=== PATIENT | female | born 1950 | race Caucasian/White ===

== ENCOUNTER → 2017-09-01 | Outpatient (CLI) | payer MEDICARE ==
[~2017-09-01] MED LIST: CALCAVITDA PO; ESTRTP VAG; FISH1000 PO; GLUC500 PO; HYDACE5325 PO; LORA1 PO; Norco 5-325 Ta1 EACH PO; PARO10 PO; PHENA200 PO; PREG75 PO; PROBIOTIC1 EAC1 PO; SERT100 PO; SERT25 PO; SULTRIDS PO
[2017-09-01 12:56] LABS: Source, Urine Clean Catch
[2017-09-01 15:28] LABS: Bilirubin, Urine Neg (Neg); Blood, Urine 1+ (Neg); Glucose Qualitative, Urine Neg (Neg); Ketones, Urine Neg (Neg); Leukocyte Esterase, Urine 3+ (Neg); Nitrite, Urine Neg (Neg); Protein, Urine Neg (Neg); Specific Gravity, Urine 1.025 (1.003-1.022); Urobilinogen, Urine NORM (Normal)
[2017-09-01 15:54] LABS: Appearance, Urine Cloudy (Clear); Color, Urine Yellow (P-Yellow)
[2017-09-01 15:56] LABS: Bacteria Mod /hpf; Red Blood Cells, Urine 0-2 /hpf (0-2); Squamous Epithelial Cells Few /hpf (Few)
== END | disposition home or self-care (01) ==
LOC: LAB 12:54
PROVIDERS: Internal Medicine
DX: N30.10 Interstitial cystitis (chronic) without hematuria (principal)
CPT/HCPCS: 81001; 87077; 87086; 87186

== ENCOUNTER → 2017-09-30 | Outpatient (CLI) | payer MEDICARE ==
[2017-09-30 18:37] LABS: Source, Urine Catheter
[2017-09-30 18:48] LABS: Appearance, Urine Clear (Clear); Bilirubin, Urine Neg (Neg); Blood, Urine Neg (Neg); Color, Urine Yellow (P-Yellow); Glucose Qualitative, Urine Neg (Neg); Ketones, Urine Neg (Neg); Leukocyte Esterase, Urine Neg (Neg); Nitrite, Urine Neg (Neg); Protein, Urine Neg (Neg); Specific Gravity, Urine 1.005 (1.003-1.022); Urobilinogen, Urine NORM (Normal)
== END | disposition home or self-care (01) ==
LOC: LAB 16:35
PROVIDERS: Nurse Practitioner Women's Health
DX: M54.5 Low back pain (principal); R30.0 Dysuria
CPT/HCPCS: 81003

== ENCOUNTER → 2018-10-14 | Outpatient (CLI) | payer MEDICARE ==
[2018-10-16 15:07] LABS: HPV 16 Negative (Negative); HPV 18 Negative (Negative); HPV OTHER HR TYPES Negative (Negative)
== END | disposition home or self-care (01) ==
LOC: LAB SHORT 19:42 → LAB 19:42
PROVIDERS: Nurse Practitioner Women's Health
DX: Z12.4 Encounter for screening for malignant neoplasm of cervix (principal)
CPT/HCPCS: 87624; G0123

== ENCOUNTER 2019-03-29 11:18 | Day surgery (SDC) | payer MEDICARE ==
[~2019-03-29] VITALS: Ht 154.9 cm; Wt 66.2 kg
[~2019-03-29 11:18] MED LIST changes: +BUSP5 PO; +CITRATE OF MAG296 ML PO; +CYCL0.05OP BOTHEYES; +Cipro500 MG PO; +Estrace Vagin42.5 GM VAG; +Flagyl500 MG PO; +Glucosamine H1500 MG PO; +HYOS.125 PO; +LORA.5 PO; +OMEPRAZOLE20 MG PO; +PAXIL40 MG PO; +PREG50 PO; +SENN187 PO; +SERT50 PO; +Vitamin D2000 UNIT PO; +ZOLP10 PO; +[UNRECOGNIZED DRUG - OTHER] PO
--- NOTE | 2019-03-29 13:11 | NUR ---
03/29/19 1311 Sola Nuñez 3 ATTEMPTS 1 REBEKA BLEW 2 FLUIDS DIDNT RUN INTO VEIN, MISS 3 SUCCESS RIGHT AC
== END 2019-03-29 14:25 | disposition home or self-care (01) ==
LOC: ORSCSDS 11:18
PROVIDERS: Internal Medicine Gastroenterology
PROC: 0DB68ZX Excision of Stomach, Via Natural or Artificial Opening Endoscopic, Diagnostic (ICD-10-PCS; principal; 2019-03-29 12:45)
PROC: 0DBN8ZX Excision of Sigmoid Colon, Via Natural or Artificial Opening Endoscopic, Diagnostic (ICD-10-PCS; principal; 2019-03-29 12:45)
PROC: 0DB98ZX Excision of Duodenum, Via Natural or Artificial Opening Endoscopic, Diagnostic (ICD-10-PCS; principal; 2019-03-29 12:45)
PROC: 0DBK8ZX Excision of Ascending Colon, Via Natural or Artificial Opening Endoscopic, Diagnostic (ICD-10-PCS; principal; 2019-03-29 12:45)
DX: K21.0 Gastro-esophageal reflux disease with esophagitis (principal); R10.9 Unspecified abdominal pain; Z86.010 Personal history of colon polyps; D12.2 Benign neoplasm of ascending colon; K63.5 Polyp of colon; R10.13 Epigastric pain; K59.00 Constipation, unspecified; K57.30 Diverticulosis of large intestine without perforation or abscess without bleeding; K63.89 Other specified diseases of intestine; K64.8 Other hemorrhoids
CPT/HCPCS: 88305; 88342; J2704; J7120

== ENCOUNTER → 2019-04-18 | Outpatient (CLI) | payer MEDICARE ==
[2019-04-18 22:02] LABS: Campylobacter Sp Not Detected (NOT DETECT); Plesiomonas Shigelloides Not Detected (NOT DETECT); Salmonella Sp Not Detected (NOT DETECT); Vibrio Sp Not Detected (NOT DETECT); Yersinia Enterocolitica Not Detected (NOT DETECT)
[2019-04-18 22:03] LABS: Adenovirus F 40/41 Not Detected (NOT DETECT); Astrovirus Not Detected (NOT DETECT); Cryptosporidium Not Detected (NOT DETECT); Cyclospora Cayetanensis Not Detected (NOT DETECT); E. Coli O157 Not Detected (NOT DETECT); Entamoeba Histolytica Not Detected (NOT DETECT); Enteroaggregative E. coli-EAEC Not Detected (NOT DETECT); Enteropathogenic E. coli-EPEC Not Detected (NOT DETECT); Enterotoxigenic E. coli-ETEC Not Detected (NOT DETECT); Giardia Lamblia Not Detected (NOT DETECT); Norovirus GI/GII Not Detected (NOT DETECT); Rotavirus A Not Detected (NOT DETECT); Sapovirus Not Detected (NOT DETECT); Shiga Toxin-prod E. coli-STEC Not Detected (NOT DETECT); Shigella/Enteroin E. coli-EIEC Not Detected (NOT DETECT); Vibrio Cholerae Not Detected (NOT DETECT)
== END | disposition home or self-care (01) ==
LOC: LAB EV 14:00 → LAB SHORT 14:00
PROVIDERS: Emergency Medicine
DX: R19.7 Diarrhea, unspecified (principal)
CPT/HCPCS: 0097U; 87324

== ENCOUNTER → 2019-07-08 | Outpatient (CLI) | payer MEDICARE | END | disposition home or self-care (01) | LOC: LAB SHORT 15:53 → LAB 15:53 | DX: N89.8 Other specified noninflammatory disorders of vagina (principal) | CPT/HCPCS: 87070; 87147; 87205 ==

== ENCOUNTER → 2020-03-29 | Outpatient (CLI) | payer OTHER | END | disposition home or self-care (01) | LOC: LAB SHORT 08:28 → PLD 08:28 | DX: N64.59 Other signs and symptoms in breast (principal) | CPT/HCPCS: 88305 ==

== ENCOUNTER → 2021-08-23 | Outpatient (CLI) | payer OTHER ==
[2021-08-23 10:33] LABS: Alanine Aminotransfer (ALT/SGP 30 U/L (12-78); Albumin, Blood 3.6 g/dL (3.4-5.0); Alk Phos 91 U/L (50-136); Anion Gap 4 mmol/L (6-16); Aspartate Aminotrans (AST/SGOT 31 U/L (12-37); Bilirubin, Total 0.4 mg/dL (0.1-1.0); Blood Urea Nitrogen 9 mg/dL (8-24); Bun/Creatinine Ratio 11.3 (12.0-20.0); CO2, Blood 29 mmol/L (21-32); Chloride, Blood 109 mmol/L (98-108); Creatinine, Blood 0.79 mg/dL (0.40-1.00); Globulin, Blood 3.5 g/dL (2.2-4.0); Glomerular Filtration Rate >60 (60-); Glucose, Blood 102 mg/dL (70-99); Potassium, Blood 3.8 mmol/L (3.5-5.5); Sodium, Blood 142 mmol/L (136-145); Total Protein, Blood 7.1 g/dL (6.4-8.2)
== END ==
LOC: LAB SHORT 08:45
PROVIDERS: Internal Medicine
DX: U07.1 COVID-19 (principal)
CPT/HCPCS: 80053

== ENCOUNTER 2021-12-24 06:27 | Day surgery (SDC) | payer OTHER ==
[~2021-12-24] VITALS: Ht 154.9 cm; Wt 69.8 kg
[2021-12-24] MEDS ORDERED: ZOLOFT50 MG PO (07:05)
[2021-12-24] MEDS ORDERED: CLON2 PO (07:10)
[2021-12-24] MEDS ORDERED: ABILIFY MYCITE5 M2 PO (07:11)
== END 2021-12-24 08:25 | disposition home or self-care (01) ==
LOC: ORSCSDS 06:27
PROVIDERS: Anesthesiology
PROC: 3E0R33Z Introduction of Anti-inflammatory into Spinal Canal, Percutaneous Approach (ICD-10-PCS; principal; 2021-12-24 07:30)
DX: M51.16 Intervertebral disc disorders with radiculopathy, lumbar region (principal); F32.A Depression, unspecified; Z79.899 Other long term (current) drug therapy
CPT/HCPCS: J1040

== ENCOUNTER → 2023-11-05 | Outpatient (CLI) | payer OTHER ==
[~2023-11-05] MED LIST changes: +ABILIFY MYCITE5 M2 PO; +CLON2 PO; +ZOLOFT50 MG PO
== END ==
LOC: LAB 08:06 → LAB SHORT 08:06
DX: R21 Rash and other nonspecific skin eruption (principal)
CPT/HCPCS: 88312

== ENCOUNTER → 2024-12-08 | Outpatient (CLI) | payer OTHER ==
[~2024-12-08] MED LIST changes: +ABILIFY5 MG; +ESZO1; +LINZESS290 MCG
[2024-12-08 15:51] LABS: Source, Urine Clean Catch
[2024-12-08 17:17] LABS: Appearance, Urine Clear (Clear); Bilirubin, Urine Neg (Neg); Blood, Urine Neg (Neg); Glucose Qualitative, Urine Neg (Neg); Ketones, Urine Neg (Neg); Leukocyte Esterase, Urine Neg (Neg); Nitrite, Urine Neg (Neg); Protein, Urine Neg (Neg); Specific Gravity, Urine 1.005 (1.003-1.022); Urobilinogen, Urine NORM (Normal); pH, Urine 6.5 (5.0-8.0)
[2024-12-08 17:23] LABS: Color, Urine Pale Yellow (P-Yellow)
== END | disposition home or self-care (01) ==
LOC: LAB SHORT 15:50 → LAB 15:50
PROVIDERS: Internal Medicine
DX: N30.10 Interstitial cystitis (chronic) without hematuria (principal)
CPT/HCPCS: 81003

== ENCOUNTER 2025-02-05 05:14 | Inpatient (IN) | payer OTHER ==
[~2025-02-05] VITALS: Ht 152.4 cm; Wt 59.4 kg
[~2025-02-05 05:14] MED LIST changes: -ABILIFY5 MG; +ABILIFY5 MG PO; +CEPH500 PO; -ESZO1; +ESZO1 PO; -LINZESS290 MCG; +LINZESS290 MCG PO
[2025-02-05 06:51] LABS: BASOPHILS ABSOLUTE AUTO 0.06 K/mm3 (0.00-0.23); BASOPHILS PERCENT AUTO 0 % (0-2); EOSINOPHILS ABSOLUTE AUTO 0.17 K/mm3 (0.00-0.68); EOSINOPHILS PERCENT AUTO 1 % (0-6); Hematocrit 30.8 % (33.0-51.0); Hemoglobin 9.9 g/dL (11.5-16.0); IMMATURE GRAN ABSOLUTE AUTO 0.36 K/mm3 (0.00-0.10); IMMATURE GRAN PERCENT AUTO 2 % (0-1); LYMPHOCYTES ABSOLUTE AUTO 1.66 K/mm3 (0.84-5.20); LYMPHOCYTES PERCENT AUTO 10 % (21-46); MONOCYTES ABSOLUTE AUTO 1.09 K/mm3 (0.16-1.47); MONOCYTES PERCENT AUTO 6 % (4-13); Mean Corpuscular HGB Conc 32.1 g/dL (31.5-36.5); Mean Corpuscular Volume 83 fL (80-100); NEUTROPHILS ABSOLUTE AUTO 13.87 K/mm3 (1.96-9.15); NEUTROPHILS PERCENT AUTO 81 % (41-73); NRBC ABSOLUTE 0.00 K/mm3 (0.00-0.02); NRBC Auto 0.0 /100 WBC (0.0-0.2); Platelet Count 518 K/mm3 (150-400); RDW Coefficient Variation 15.0 % (11.7-14.2); RDW Standard Deviation 45.5 fL (35.1-46.3)
[2025-02-05 07:04] LABS: Alanine Aminotransfer (ALT/SGP 32.0 U/L (12-78); Albumin, Blood 2.4 g/dL (3.4-5.0); Albumin/Globulin Ratio 0.5 (0.8-1.8); Anion Gap 11.0 mmol/L (3-11); Aspartate Aminotrans (AST/SGOT 32.0 U/L (12-37); Bilirubin, Total 0.6 mg/dL (0.1-1.0); Blood Urea Nitrogen 10.0 mg/dL (8-24); CO2, Blood 23.0 mmol/L (21-32); Calcium, Blood 8.9 mg/dL (8.5-10.1); Chloride, Blood 99.0 mmol/L (98-108); Creatinine, Blood 0.75 mg/dL (0.40-1.00); Globulin, Blood 5.0 g/dL (2.2-4.0); Glucose, Blood 101.0 mg/dL (70-99); Magnesium, Blood 2.1 mg/dL (1.6-2.4); Potassium, Blood 3.8 mmol/L (3.5-5.5); Sodium, Blood 129.0 mmol/L (136-145); Total Protein, Blood 7.4 g/dL (6.4-8.2)
[2025-02-05] MEDS ORDERED: NS 1,000 ML IV SCH (11:40)
[2025-02-05] MEDS ORDERED: Piperacillin/Tazobactam Sod 3.375 GM in NS 100 ML IV SCH (12:00)
[2025-02-05 14:09] LABS: Source, Urine Straight Cath
[2025-02-05] MEDS ORDERED: NS 1,000 ML IV ONE (14:14)
[2025-02-05 14:15] LABS: Bilirubin, Urine Neg (Neg); Glucose Qualitative, Urine Neg (Neg); Ketones, Urine 4+ (Neg); Leukocyte Esterase, Urine Neg (Neg); Protein, Urine 1+ (Neg); Specific Gravity, Urine 1.010 (1.003-1.022); Urobilinogen, Urine NORM (Normal)
[2025-02-05 14:20] LABS: Color, Urine Pale Yellow (P-Yellow)
[2025-02-05 15:23] VITALS: BP 135/63
--- NOTE | 2025-02-05 18:51 | NUR ---
SHIFT SUMMARY HAS DONE WELL SINCE ADMISSION. TOLERATING SOME FOOD & DRINK w/o N/V. AFEBRILE. IVF & ABX INFUSED ORDERED.
[2025-02-05 19:36] VITALS: BP 119/54
[2025-02-05] MEDS ORDERED: Lactobacil 2-S.Thermo-Bifido 1 1 Cap PO SCH (21:00)
[2025-02-05] MEDS ORDERED: Saline Nasal Spray 45 ML PRN (21:50)
[2025-02-05] MEDS ORDERED: HYDROcodone 5-APAP 325 TAB PO PRN (21:55)
[2025-02-06 05:50] LABS: BASOPHILS ABSOLUTE AUTO 0.03 K/mm3 (0.00-0.23); BASOPHILS PERCENT AUTO 0 % (0-2); EOSINOPHILS ABSOLUTE AUTO 0.22 K/mm3 (0.00-0.68); EOSINOPHILS PERCENT AUTO 2 % (0-6); Hematocrit 26.9 % (33.0-51.0); Hemoglobin 8.9 g/dL (11.5-16.0); IMMATURE GRAN ABSOLUTE AUTO 0.25 K/mm3 (0.00-0.10); IMMATURE GRAN PERCENT AUTO 2 % (0-1); LYMPHOCYTES ABSOLUTE AUTO 1.46 K/mm3 (0.84-5.20); LYMPHOCYTES PERCENT AUTO 11 % (21-46); MONOCYTES ABSOLUTE AUTO 0.80 K/mm3 (0.16-1.47); MONOCYTES PERCENT AUTO 6 % (4-13); Mean Corpuscular HGB Conc 33.1 g/dL (31.5-36.5); Mean Corpuscular Volume 84 fL (80-100); NEUTROPHILS ABSOLUTE AUTO 10.15 K/mm3 (1.96-9.15); NEUTROPHILS PERCENT AUTO 79 % (41-73); NRBC ABSOLUTE 0.00 K/mm3 (0.00-0.02); NRBC Auto 0.0 /100 WBC (0.0-0.2); Platelet Count 472 K/mm3 (150-400); RDW Coefficient Variation 15.1 % (11.7-14.2); RDW Standard Deviation 46.4 fL (35.1-46.3)
[2025-02-06 06:11] VITALS: BP 124/58
[2025-02-06 06:17] LABS: Alanine Aminotransfer (ALT/SGP 25.0 U/L (12-78); Albumin, Blood 1.9 g/dL (3.4-5.0); Albumin/Globulin Ratio 0.5 (0.8-1.8); Anion Gap 9.0 mmol/L (3-11); Aspartate Aminotrans (AST/SGOT 28.0 U/L (12-37); Bilirubin, Total 0.5 mg/dL (0.1-1.0); Blood Urea Nitrogen 6.0 mg/dL (8-24); CO2, Blood 25.0 mmol/L (21-32); Calcium, Blood 8.0 mg/dL (8.5-10.1); Chloride, Blood 107.0 mmol/L (98-108); Creatinine, Blood 0.65 mg/dL (0.40-1.00); Globulin, Blood 4.2 g/dL (2.2-4.0); Glucose, Blood 101.0 mg/dL (70-99); Potassium, Blood 3.6 mmol/L (3.5-5.5); Sodium, Blood 137.0 mmol/L (136-145); Total Protein, Blood 6.1 g/dL (6.4-8.2)
--- NOTE | 2025-02-06 06:28 | NUR ---
SHIFT SUMMARY AOX4. VSS. SCANT YELLOW DRAINAGE ON ATTENDS, CHANGED-NO FURTHER DRAINAGE NOTED. REPORTS "PELVIC/VAGINA DISCOMFORT" MEDICATED 1x W/NORCO & NO FURTHER DISCOMFORT REPORTED & PT ABLE TO REST SOUNDLY T/O NIGHT. GOLDBERG PATENT & DRAINING CLEAR YELLOW URINE. PT REPORTS HAVING LOOSE STOOLS PAST COUPLE DAYS, DENIES N/V. CALL LIGHT IN REACH & PT ABLE TO MAKE NEEDS KNOWN.
[2025-02-06] MEDS ORDERED: Enoxaparin 40 MG/0.4 ML SYR SC SCH (07:00)
[2025-02-06 07:29] VITALS: BP 131/63
[2025-02-06] MEDS ORDERED: Polyethylene Glycol 3350 17 gm PO PRN (08:05)
[2025-02-06] MEDS ORDERED: Misc. Capsule PO SCH (09:00)
[2025-02-06 11:45] VITALS: BP 129/63
[2025-02-06 13:18] LABS: Ferritin, Serum 572.0 ng/mL (8-252); Total Iron Binding Capacity 113.0 ug/dL (250-450)
[2025-02-06 16:16] VITALS: BP 124/64
[2025-02-06] MEDS ORDERED: NS 250 ML IV PRN (17:00)
--- NOTE | 2025-02-06 18:08 | NUR ---
SHIFT SUMMARY PT AOX4, CALLS AND MAKES HER NEEDS KNOWN. 1 ASSIST WITH THE FWW TO THE BR. GOLDBERG IN PLACE AND DRAINING. MEDICATED FOR PAIN PER THE EMAR. NO OTHER ACUTE CHANGES. PLAN IS TO POSSIBLY DC HOME TOMORROW. PT STATES SHE IS FEELING MUCH BETTER. CALL LIGHT WITHIN REACH, BED LOCKED AND IN THE LOWEST POSITION. WILL REPORT TO ONCOMING NURSE.
[2025-02-06 20:23] VITALS: BP 140/67
[2025-02-07 03:09] VITALS: BP 133/65
--- NOTE | 2025-02-07 06:12 | NUR ---
SUMMARY NO ACUTE CHANGES THIS SHIFT.PT RESTED QUIETLY.
[2025-02-07 07:34] VITALS: BP 137/65
[2025-02-07 08:46] LABS: Hematocrit 27.1 % (33.0-51.0); Hemoglobin 8.8 g/dL (11.5-16.0); Mean Corpuscular HGB Conc 32.5 g/dL (31.5-36.5); Mean Corpuscular Volume 83 fL (80-100); NRBC ABSOLUTE 0.00 K/mm3 (0.00-0.02); NRBC Auto 0.0 /100 WBC (0.0-0.2); Platelet Count 520 K/mm3 (150-400); RDW Coefficient Variation 15.3 % (11.7-14.2); RDW Standard Deviation 46.5 fL (35.1-46.3)
[2025-02-07] MEDS ORDERED: Ondansetron 4 MG SoluTab MM PRN (09:40)
--- NOTE | 2025-02-07 10:42 | NUR ---
NOTE DR. HAWKINS REPORTED "TO D/C GOLDBERG, SEE IF SHE IS ABLE TO PEE ON HER OWN TODAY, IF SHE CAN PT CAN BE DISCHARGED." DR. RINALDI ROUNDED ON PT, REPORTED "DR. GARCIA MANAGING GOLDBERG, CHECK WITH HER TO SEE IF WE SHOULD D/C GOLDBERG. DR. GARCIA REPORTED "CAN D/C GOLDBERG. WILL ROUND ON PT LATER. IF PT DOES NOT VOID IN 4 HOURS BLADDER SCAN. IF PT VOIDS SOONER STILL BLADDER SCAN PT STILL." PT REQUESTED STOOL SOFTNER THIS AM. THIS RN GAVE PRN STOOL SOFTNER. PT REPORTED BM. THIS RN ASSESSED STOOL IN HAT. STOOL LOOKED LIKE A MEDIUM/SOFT BM. PT REPORTED "IMPROVED BM BUT NOT GREAT." PT REPORTS PAIN. PAIN MANAGED PER EMAR. PT REPORTED NAUSEA. CALLED DR. HAWKINS TO ORDER NAUSEA MEDS. PT REPORTED CONCERN WITH NAUSEA MEDS WITH ZOLOFT, REPORTED TO DR. HAWKINS. CONFIRMED ZOFRAN CAN BE TAKEN WITH ZOLOFT BY PHARMACY. PHARMACY REPORTED "OK, PT CAN HAVE."
--- NOTE | 2025-02-07 11:46 | NUR ---
NOTE REPORTED FINAL REPORT OF ABSCESS CULTURE. TO DR. HAWKINS. DR. HAWKINS REPORTED "LOOKS LIKE SHE IS COVERED WITH THE ZOCIN IV ANTIBIOTIC SHE IS GETTING." NO NEW ORDERS AT THIS TIME.
[2025-02-07 14:32] VITALS: BP 140/65
--- NOTE | 2025-02-07 15:32 | NUR ---
NOTE GOLDBERG D/C AT 1015. PT REPORTED 3 VOIDS POST GOLDBERG REMOVAL. BLADDER SCANED POST FIRST AND THIRD VOID. PT LAST VOID WAS 300ML/HR. BLADDER SCANNED POST VOID WAS 454.ML/HR. REPORTED TO DR. GARCIA FINDINGS. DR. GARCIA REPORTED PT CAN HAVE CHOICE TO STRAIGHT CATH EVERY 3 HOURS OR INSERT ANOTHER GOLDBERG. RECOMMEND ANOTHER GOLDBERG AND REPEAT CT TOMORROW." TALKED WITH PT. PT REQUESTED GOLDBERG CATH.
--- NOTE | 2025-02-07 19:30 | NUR ---
SHIFT SUMMARY PT A&OX4. PT ADMITTED DUE TO PELVIC ABSESS. PT REPORTS PAIN. PAIN MANAGED PER EMAR. PT EATS ADEQUATE. PT IS SBA, PT REPOSITIONS SELF IN BED. PT REPORTS NAUSEA NO VOMITTING. PT HAS ATTENDS IN PLACE, CONT OF STOOL. PT HAS GOLDBERG, GOLDBERG DRAINING ADEQUATE WITH NO DEPENDENT LOOPS. PT IN BED, BED IN LOWEST POSITION, CALL LIGHT IN REACH. PLAN FOR REPEAT CT TOMORROW.
[2025-02-07 19:37] VITALS: BP 137/62
[2025-02-08] VITALS (7 sets, daily range): BP systolic 114–147; BP diastolic 55–77
[2025-02-08 04:25] LABS: BASOPHILS ABSOLUTE AUTO 0.03 K/mm3 (0.00-0.23); BASOPHILS PERCENT AUTO 0 % (0-2); EOSINOPHILS ABSOLUTE AUTO 0.26 K/mm3 (0.00-0.68); EOSINOPHILS PERCENT AUTO 2 % (0-6); Hematocrit 26.7 % (33.0-51.0); Hemoglobin 8.5 g/dL (11.5-16.0); IMMATURE GRAN ABSOLUTE AUTO 0.28 K/mm3 (0.00-0.10); IMMATURE GRAN PERCENT AUTO 2 % (0-1); LYMPHOCYTES ABSOLUTE AUTO 1.40 K/mm3 (0.84-5.20); LYMPHOCYTES PERCENT AUTO 8 % (21-46); MONOCYTES ABSOLUTE AUTO 1.02 K/mm3 (0.16-1.47); MONOCYTES PERCENT AUTO 6 % (4-13); Mean Corpuscular HGB Conc 31.8 g/dL (31.5-36.5); Mean Corpuscular Volume 84 fL (80-100); NEUTROPHILS ABSOLUTE AUTO 13.91 K/mm3 (1.96-9.15); NEUTROPHILS PERCENT AUTO 82 % (41-73); NRBC ABSOLUTE 0.00 K/mm3 (0.00-0.02); NRBC Auto 0.0 /100 WBC (0.0-0.2); Platelet Count 489 K/mm3 (150-400); RDW Coefficient Variation 15.2 % (11.7-14.2); RDW Standard Deviation 46.5 fL (35.1-46.3)
[2025-02-08 04:46] LABS: Anion Gap 10.0 mmol/L (3-11); Blood Urea Nitrogen 6.0 mg/dL (8-24); CO2, Blood 25.0 mmol/L (21-32); Calcium, Blood 8.2 mg/dL (8.5-10.1); Chloride, Blood 102.0 mmol/L (98-108); Creatinine, Blood 0.61 mg/dL (0.40-1.00); Glucose, Blood 86.0 mg/dL (70-99); Potassium, Blood 2.9 mmol/L (3.5-5.5); Sodium, Blood 134.0 mmol/L (136-145)
--- NOTE | 2025-02-08 04:48 | NUR ---
SHIFT SUMMARY S/P INTRA-ABDOMINAL ABSCESS. NO ACUTE CHANGES OVERNIGHT. VSS. TOLERATING ORALS. MODERATE NAUSEA, PT REPORTS RELIEF c MEDICATION. GOLDBERG DRAINING YELLOW URINE TO GRAVITY. PT ENDORSES "VAGINAL" PAIN, MEDICATED PER EMAR. IV ABX INFUSING PER EMAR. AMBULATES USING FWW c SBA. ANTICIPATED REPEAT CT THIS AM. CALL LIGHT IN REACH, BED IN LOWEST POSITION, WILL REPORT TO DAY RN.
[2025-02-08] MEDS ORDERED: Potassium Chl 20MEQ/Water100ML 100 ML IV SCH (06:40)
--- NOTE | 2025-02-08 17:55 | NUR ---
SHIFT SUMMARY PT REPORTS PAIN IS TOLERABLE DURING SHIFT. GOLDBERG REMAINS PATENT AND DRAINING. 2ND IV INFILATRATED DURING SHIFT. CURRENTLY AWAITING POWERGLIDE PLACEMENT. PT FREQUENTLY UP TO RESTROOM. REPORTS LOOSE STOOLS. CALLS APPROPRIATLY. DENIES NAUSEA, TOLERATING PO.
--- NOTE | 2025-02-08 23:36 | NUR ---
TRANSFER 232 REPORT GIVEN TO AHMET RN. 2336 EMS ARRIVAL TO TRANSPORT PT TO [facility] [place] [facility]. SUMMARY S/P INTRA-ABDOMINAL ABSCESS. A&0 x4. VSS. TOLERATING DIET, REPORTS INTERMITTENT NAUSEA c RELIEF PER EMAR. GOLDBERG DRAINING YELLOW URINE c STAT LOCK IN PLACE. LOOSE BMs TODAY. AMBULATES c SBA R/T LINES. PT REPORTS PAIN TOLERABLE c ORAL ANALGESICS. SALIENE LOCKED. PERSONAL BELONGINGS c PT. ADDITIONAL BELONGINGS PLACED AT THE DESK c A NOTE FOR THE TO PICK-UP TOMORROW.
== END 2025-02-08 23:39 | disposition short-term general hospital (02) | DRG 862 ==
LOC: ER 05:14 → SURS 05:15
PROVIDERS: Student in an Organized Health Care Education/Training Program; ADMIT Hospitalist
PROC: 0W9G3ZZ Drainage of Peritoneal Cavity, Percutaneous Approach (ICD-10-PCS; principal; 2025-02-05)
PROC: 3E03329 Introduction of Other Anti-infective into Peripheral Vein, Percutaneous Approach (ICD-10-PCS; 2025-02-05)
DX: T81.49XA Infection following a procedure, other surgical site, initial encounter (principal); A40.8 Other streptococcal sepsis; E87.1 Hypo-osmolality and hyponatremia; K68.11 Postprocedural retroperitoneal abscess; D64.9 Anemia, unspecified; D75.839 Thrombocytosis, unspecified; F41.9 Anxiety disorder, unspecified; M19.90 Unspecified osteoarthritis, unspecified site; M79.7 Fibromyalgia; M81.0 Age-related osteoporosis without current pathological fracture; R33.8 Other retention of urine; E87.6 Hypokalemia; Z90.722 Acquired absence of ovaries, bilateral; Z90.710 Acquired absence of both cervix and uterus; Z79.899 Other long term (current) drug therapy; Z87.440 Personal history of urinary (tract) infections; Z90.49 Acquired absence of other specified parts of digestive tract; Z98.890 Other specified postprocedural states; Y83.8 Other surgical procedures as the cause of abnormal reaction of the patient, or of later complication, without mention of misadventure at the time of the procedure
CPT/HCPCS: 36415; 49406; 51701; 51702; 51798; 74177; 80048; 80053; 82728; 83540; 83550; 83690; 83735; 85025; 85027; 87070; 87075; 87076; 87185; 87205; 96365-59; 96366; 96366-59; 96372; 96376; 99285-25; A9270; C1751; G0378; J1650; J2543; J3480; J7030; J7050; Q9967